=== PATIENT | female | born 1970 | race Two or more races ===

== ENCOUNTER → 2020-04-09 | Outpatient (CLI) | payer OTHER ==
[~2020-04-09] VITALS: Ht 157.5 cm; Wt 89.8 kg
[~2020-04-09] MED LIST: LOSARTAN POTASS50 MG
== END | disposition home or self-care (01) ==
LOC: OFIC 805 04-01 08:00
PROVIDERS: ATTEND Otolaryngology
DX: K21.9 Gastro-esophageal reflux disease without esophagitis (principal); R07.0 Pain in throat; R09.89 Other specified symptoms and signs involving the circulatory and respiratory systems